=== PATIENT | female | born 1975 | race Caucasian/White ===

== ENCOUNTER → 2016-08-24 | Outpatient (CLI) | payer OTHER ==
[~2016-08-24] MED LIST: ACETAMINOPHEN PO; ADDERALL 30 MG30 M1; AMOXICILLIN; ATIVAN PO; AZO1 EACH; DIOVAN PO; IBUPROFEN PO; LEXAPRO PO; LIPITOR20 MG PO; NAPROXEN500 M1; OMEPRAZOLE20 M1; PERCOCET10; PREDNISONE PO; PREMARIN PO; TYLOX 5/500 CAP1 CAP PO
--- NOTE | ~2016-08-24 | MR17 ---
[facility] A Service of [facility] RADIOLOGY TEXT RESULTS PATIENT: NEFTALI PERERA LOCATION: [facility] : 75 UNIT #: [id number] AGE: [address]: EVERT GALLEGOS MD SEX: F ORDER DR: [id number] [address] [address] [id number] O MR#: [id number] Acc #: [id number] NAME: NEFTALI PERERA : 1975 SEX: F STUDY DATE/TIME: 08/24/2016 17:22 UNIT: [facility] ROOM: STUDY DESCRIPTION: MR Brain WWo Contrast Attending Physician: Evert Gallegos Referring Physician: Evert Gallegos Ordering Physician: Physician Non-Staff Primary Care Physician: Alfredo Wilkinson M.D. MRI CENTER REPORT This report is preliminary unless electronic signature is present. EXAM MRI brain with and without. HISTORY Blurred/double vision and peripheral vision loss. Auras and vibration in vision for 1 1/2 months. History of ovarian cancer. COMMENT MRI of the brain was performed prior to and following intravenous administration of 11 mL of MultiHance. There is a separate dictation for the orbits. There is no abnormality restricted diffusion. 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 No Chiari I malformation. The major intracranial flow voids are maintained. Small amount of fluid or inflammatory change in the right-sided mastoid air cells. Mild paranasal sinus disease with opacification of the right posterior ethmoid air cell and a small mucous retention cyst or polyp in the right maxillary sinus but no sinus air-fluid level. The ventricles are normal in size and configuration. The ruvalcaba-white junction is normal. There is no intracranial mass effect or extraaxial fluid collection. Following contrast administration, there is no pathologic intracranial enhancement. No suspicious intracranial mass lesion or mass effect. IMPRESSION 1. 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 2. See separate orbits dictation. [facility] A Service of [facility] RADIOLOGY TEXT RESULTS PATIENT: NEFTALI PERERA LOCATION: [facility] : 75 UNIT #: [id number] AGE: [address]: EVERT GALLEGOS MD SEX: F ORDER DR: Dictated by... Yen Brooks M.D. THIS IS AN ELECTRONICALLY VERIFIED REPORT Yen Brooks M.D. at 08/25/2016 2:51 PM LENA/sheng TD: 08/25/2016 10:16 JOB #: [id number] MRI CENTER REPORT Page 1 of 1
--- NOTE | ~2016-08-24 | MR148 ---
[facility] A Service of [facility] RADIOLOGY TEXT RESULTS PATIENT: NEFTALI PERERA LOCATION: [facility] : 75 UNIT #: [id number] AGE: [address]: EVERT GALLEGOS MD SEX: F ORDER DR: [id number] [address] [address] [id number] O MR#: [id number] Acc #: [id number] NAME: NEFTALI PERERA : 1975 SEX: F STUDY DATE/TIME: 08/24/2016 17:22 UNIT: [facility] ROOM: STUDY DESCRIPTION: MR Orbit Face and or Neck WWo Attending Physician: Evert Gallegos Referring Physician: Evert Gallegos Ordering Physician: Staff Doctor Not On Primary Care Physician: Alfredo Wilkinson M.D. MRI CENTER REPORT This report is preliminary unless electronic signature is present. EXAM Orbits MR HISTORY Visual disturbance for 1.5 months. Complaining of blurred and double vision with peripheral visual loss, auras, and vibrations in vision. Family history is strong for glaucoma. TECHNIQUE MRI of the orbits performed prior to and following intravenous administration of 11 mL of MultiHance. There is a separate MRI of the brain. FINDINGS There is a normal appearance to the bilateral optic nerves, optic tracks, and the optic chiasm. Signal intensity is normal and there is no pathologic enhancement. Sellar structures are unremarkable. Globes are intact. The lenses appear located. The lacrimal glands are unremarkable. The superior ophthalmic veins are normal and symmetric and the extraocular muscles are within normal limits. The retrobulbar fat is well-maintained. IMPRESSION 1. Essentially normal MRI of the orbits with and without contrast. Dictated by... Yen Brooks M.D. THIS IS AN ELECTRONICALLY VERIFIED REPORT Yen Brooks M.D. at 08/25/2016 2:51 PM SAC/aa [facility] A Service of [facility] RADIOLOGY TEXT RESULTS PATIENT: NEFTALI PERERA LOCATION: [facility] : 75 UNIT #: [id number] AGE: [address]: EVERT GALLEGOS MD SEX: F ORDER DR: TD: 08/25/2016 10:47 JOB #: [id number] MRI CENTER REPORT Page 1 of 1
== END | disposition home or self-care (01) ==
LOC: SMRI 16:56
DX: H53.8 Other visual disturbances (principal); H40.053 Ocular hypertension, bilateral
CPT/HCPCS: 70543; 70553; A9581

== ENCOUNTER 2016-08-31 03:11 | Emergency (ER) | payer OTHER ==
[~2016-08-31 03:11] MED LIST changes: -ADDERALL 30 MG30 M1; -AZO1 EACH; -LIPITOR20 MG PO; -NAPROXEN500 M1; -OMEPRAZOLE20 M1; -PERCOCET10
== END 2016-08-31 04:32 | disposition left against medical advice (07) ==
LOC: CED 03:11
DX: Z53.21 Procedure and treatment not carried out due to patient leaving prior to being seen by health care provider (principal)

== ENCOUNTER 2016-12-25 22:10 | Emergency (ER) | payer OTHER ==
[~2016-12-25] VITALS: Ht 167.6 cm; Wt 61.2 kg
[2016-12-25] MEDS ORDERED: ADDERALL 30 MG30 M1 (22:19)
[2016-12-25] MEDS ORDERED: OMEPRAZOLE20 M1 (22:19)
[2016-12-25] MEDS ORDERED: PERCOCET10 (22:19)
[2016-12-25] MEDS ORDERED: AZO1 EACH (22:19)
[2016-12-25] MEDS ORDERED: NAPROXEN500 M1 (22:19)
[2016-12-25] MEDS ORDERED: LIPITOR20 MG PO (22:20)
[2016-12-25 23:01] LABS: URINE SOURCE CLEAN CATCH
[2016-12-25 23:03] LABS: URINE APPEARANCE TURBID; URINE BLOOD 3+ (NEG); URINE COLOR DK YELLOW; URINE KETONE TRACE (NEG); URINE LEUKOCYTE ESTERASE 1+ (NEG); URINE NITRATE POS (NEG); URINE PROTEIN 3+ (NEG); URINE SPECIFIC GRAVITY >=1.030 (1.003-1.035)
[2016-12-25 23:07] LABS: MICRO INDICATED? YES; URINE BILIRUBIN NEG (NEG); URINE GLUCOSE 50 MG/DL (NORM)
[2016-12-25 23:08] LABS: URINE BACTERIA 1+ (NEG); URINE RBC 100-200 /[HPF] (0-2); URINE SQUAMOUS EPITHELIAL CELL FEW /[HPF]
== END 2016-12-25 23:59 | disposition home or self-care (01) ==
LOC: SED 22:10
PROVIDERS: Emergency Medicine
DX: N39.0 Urinary tract infection, site not specified (principal); I10 Essential (primary) hypertension; F17.200 Nicotine dependence, unspecified, uncomplicated; Z90.710 Acquired absence of both cervix and uterus
CPT/HCPCS: 81003; 84703; 99283